=== PATIENT | male | born 1935 | race Two or more races ===

== ENCOUNTER → 2024-05-28 | Outpatient (CLI) | payer MEDICARE, OTHER ==
--- NOTE | 2024-05-28 13:21 | CA ---
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 67 - 155 / 56 - 104 cm??? LV Systolic Volume MOD BP 46.2 cm??? 22 - 58 / 19 - 49 cm??? LV Ejection Fraction MOD BP 55.7 % >= 55 % LV Cardiac Index MOD BP 2904.6 cm???/min???m??? LV Diastolic Volume MOD 4C 95.2 cm??? LV Systolic Volume MOD 4C 42.9 cm??? LV Ejection Fraction MOD 4C 55.0 % LV Cardiac Index MOD 4C 2617.7 cm???/min???m??? LV Diastolic Length 4C 7.8 cm LV Systolic Length 4C 6.8 cm LV Diastolic Volume MOD 2C 108.0 cm??? LV Systolic Volume MOD 2C 48.6 cm??? LV Ejection Fraction MOD 2C 55.0 % LV Cardiac Index MOD 2C 2968.5 cm???/min???m??? LV Diastolic Length 2C 8.3 cm LV Systolic Length 2C 6.6 cm Ascending Aorta Diameter 4.0 cm DOPPLER AV Peak Velocity 137.4 cm/s AV Peak Gradient 7.6 mmHg AV Mean Velocity 103.3 cm/s AV Mean Gradient 4.6 mmHg AV Velocity Time Integral 25.7 cm LVOT Peak Velocity 92.4 cm/s LVOT Peak Gradient 3.4 mmHg LVOT Velocity Time Integral 15.9 cm LVOT Stroke Volume 65.2 cm??? LVOT Stroke Volume Index 38.1 ml/m??? LVOT Cardiac Index 3261.3 cm???/min???m??? AV Area Cont Eq vti 2.5 cm??? AV Area Cont Eq pk 2.8 cm??? Mitral E Point Velocity 58.8 cm/s Mitral A Point Velocity 65.7 cm/s Mitral E to A Ratio 0.9 MV Deceleration Time 202.5 ms MV E' Velocity 7.6 cm/s Mitral E to MV E' Ratio 7.7 TR Peak Velocity 237.0 cm/s TR Peak Gradient 22.5 mmHg Right Atrial Pressure 5.0 mmHg Pulmonary Artery Systolic Pressu 27.5 mmHg Right Ventricular Systolic Press 27.5 mmHg PV Peak Velocity 90.4 cm/s PV Peak Gradient 3.3 mmHg FINDINGS Left Ventricle Left ventricular ejection fraction is estimated at 55 %. Left ventricular cavity size normal. Left ventricular wall thickness normal. No obvious regional wall motion abnormalities. Right Ventricle Normal right ventricular size and function. Right ventricular systolic pressure within normal limits. Right Atrium Normal right atrial size. Left Atrium Normal left atrial size. Mitral Valve Mitral valve thickened. No evidence for mitral valve prolapse. No mitral stenosis. Mild mitral regurgitation. Aortic Valve Trileaflet aortic valve. No aortic stenosis. Trace aortic regurgitation. Tricuspid Valve Structurally normal tricuspid valve. No tricuspid stenosis. Mild tricuspid regurgitation. Pulmonic Valve Structurally normal pulmonic valve. No pulmonic stenosis. Mild pulmonic regurgitation. Pericardium Small pericardial effusion. Left pleural effusion. Aorta Aortic annulus normal. Ascending aorta mildly enlarged. CONCLUSIONS LVEF 55% No obvious regional wall motion abnormality No significant valve dysfunction RVSP estimated at 27 mmHg Normal RV size and systolic function Previewed by: Dr Shamar Chua (Electronically Signed) Final Date: 28 May 2024 13:20
== END | disposition home or self-care (01) ==
LOC: RADECHMAIN 09:16
PROVIDERS: ATTEND Family Medicine
DX: I48.92 Unspecified atrial flutter (principal); I31.39 Other pericardial effusion (noninflammatory); J90 Pleural effusion, not elsewhere classified
CPT/HCPCS: 93306